=== PATIENT | female | born 2000 | race Caucasian/White ===

== ENCOUNTER 2021-06-04 13:03 | Emergency (ER) | payer MEDICAID ==
[~2021-06-04] VITALS: Ht 144.8 cm; Wt 66.0 kg
[2021-06-04 15:10] LABS: BASOPHILS % 0.6 % (0.0-2.0); EOSINOPHILS % 0.7 % (0.0-5.0); HEMOGLOBIN. 14.3 g/dL (12.0-16.0); LYMPHOCYTES % 51.6 % (20.0-50.0); MEAN CORPUSCULAR HEMOGLOBIN 30.4 pg (28.0-32.0); MEAN CORPUSCULAR VOLUME 89.2 fL (81.0-99.0); MEAN PLATELET VOLUME 7.1 fl (7.4-10.4); MONOCYTES % 8.5 % (2.0-8.0); NEUTROPHILS % 38.6 % (40.0-76.0); PLATELET 333 x1000/uL (130-400); RED BLOOD CELL COUNT 4.71 mill/uL (4.2-5.4); RED CELL DISTRIBUTION WIDTH 13.4 % (11.6-14.6)
[2021-06-04 15:17] LABS: CHLORIDE 113 mEq/L (98-107)
== END 2021-06-04 15:56 | disposition home or self-care (01) ==
LOC: ER 13:03
DX: R07.89 Other chest pain (principal); R06.02 Shortness of breath; R11.0 Nausea; F17.290 Nicotine dependence, other tobacco product, uncomplicated; Z90.49 Acquired absence of other specified parts of digestive tract
CPT/HCPCS: 36415; 71045; 80053; 81025; 84484; 85025; 93005; 99285

== ENCOUNTER 2021-09-30 21:20 | Emergency (ER) | payer SELFPAY ==
[~2021-09-30] VITALS: Ht 147.3 cm; Wt 67.0 kg
[2021-09-30 21:25] VITALS: BP 112/67
== END 2021-10-01 02:23 | disposition left against medical advice (07) ==
LOC: ER 21:20
DX: Z53.21 Procedure and treatment not carried out due to patient leaving prior to being seen by health care provider (principal)

== ENCOUNTER 2023-01-23 19:56 | Emergency (ER) | payer SELFPAY ==
[~2023-01-23] VITALS: Ht 149.9 cm; Wt 64.0 kg
[2023-01-23 20:21] VITALS: BP 107/64
[2023-01-23] MEDS ORDERED: ACETAMINOPHEN 325MG TABLET PO ONE (21:45)
== END 2023-01-23 22:20 | disposition home or self-care (01) ==
LOC: ER 19:56
DX: R51.9 Headache, unspecified (principal); R21 Rash and other nonspecific skin eruption
CPT/HCPCS: 99282

== ENCOUNTER 2023-12-28 09:49 | Emergency (ER) | payer BC, MEDICAID ==
[~2023-12-28] VITALS: Ht 147.3 cm; Wt 67.1 kg
[2023-12-28 10:15] VITALS: O2SAT 99
[2023-12-28 10:42] LABS: BASOPHILS % 0.5 % (0.0-2.0); EOSINOPHILS % 0.4 % (0.0-5.0); HEMATOCRIT. 39.1 % (36.0-48.0); HEMOGLOBIN. 13.5 g/dL (12.0-16.0); LYMPHOCYTES % 43.6 % (20.0-50.0); MEAN CORPUSCULAR HEMOGLOBIN 31.2 pg (28.0-32.0); MEAN CORPUSCULAR HGB CONC 34.6 g/dL (31.0-37.0); MEAN CORPUSCULAR VOLUME 90.2 fL (81.0-99.0); MEAN PLATELET VOLUME 6.9 fl (7.4-10.4); MONOCYTES % 8.4 % (2.0-8.0); NEUTROPHILS % 47.1 % (40.0-76.0); PLATELET 306 x1000/uL (130-400); RED BLOOD CELL COUNT 4.33 mill/uL (4.2-5.4); WHITE BLOOD COUNT 5.8 x1000/uL (4.5-11.0)
[2023-12-28 10:55] LABS: CHLORIDE 110 mEq/L (98-107)
[2023-12-28 10:56] LABS: CARBON DIOXIDE 21 mEq/L (21-32); POTASSIUM 4.1 mEq/L (3.5-5.1); SODIUM 140 mEq/L (136-145)
[2023-12-28 10:57] LABS: CALCIUM 9.2 mg/dL (8.7-10.4)
[2023-12-28 11:01] LABS: CREATININE 0.7 mg/dL (0.6-1.0); GLUCOSE 91 mg/dL (70-105)
[2023-12-28 11:02] LABS: UREA NITROGEN BLOOD 8 mg/dL (9-23)
[2023-12-28 11:03] LABS: ALANINE AMINOTRANSFERASE 23 IU/L (10-49); ALBUMIN 4.9 g/dL (3.2-4.8); ASPARTATE AMINOTRANSFERASE 21 IU/L (<34)
[2023-12-28 11:04] LABS: BILIRUBIN TOTAL 1.1 mg/dL (0.1-1.0)
[2023-12-28 11:27] LABS: HCG SCREEN NEGATIVE
[2023-12-28] MEDS: IBUPROFEN 800MG TABLET PO NR (14:09)
[2023-12-28] MEDS: ONDANSETRON 4MG ODT PO NR (14:09)
[2023-12-28 17:47] LABS: CLARITY URINE TURBID (CLEAR); COLOR URINE YELLOW (YELLOW); GLUCOSE URINE NEGATIVE (NEGATIVE); KETONES URINE NEGATIVE (NEGATIVE); LEUKOCYTE ESTERASE URINE 3+ (NEGATIVE); NITRITE URINE NEGATIVE (NEGATIVE); OCCULT BLOOD URINE NEGATIVE (NEGATIVE); PH URINE 5.5 (4.5-8.0); PROTEIN URINE NEGATIVE (NEGATIVE); UROBILINOGEN URINE 0.2 E.U./dL (0.2-1.0)
[2023-12-28 17:57] LABS: RBC URINE 0-2 /hpf (0-2); SQUAMOUS EPITHELIAL CELL URINE 2+ /lpf (RARE/1+)
[2023-12-28 17:58] LABS: BACTERIA URINE 1+
[2023-12-28] MEDS ORDERED: NITR-87 MT (18:13)
[2023-12-28] MEDS: NITROFURANTOIN 100MG M/M CAPSULE PO STA (18:27)
[2023-12-28 18:28] VITALS: BP 101/58; PULSE 80; RESP 18; TEMP 98.7
== END 2023-12-28 18:31 | disposition home or self-care (01) ==
LOC: ER 10:14
DX: R10.9 Unspecified abdominal pain (principal); D64.9 Anemia, unspecified; Z90.49 Acquired absence of other specified parts of digestive tract
CPT/HCPCS: 99285; 74176; 80053; 81003; 84703; 83690; 85025; 87086; 87077; 36415; Q0162